=== PATIENT | male | born 1980 | race Caucasian/White ===

== ENCOUNTER → 2016-07-16 | Outpatient (CLI) | payer OTHER ==
[~2016-07-16] VITALS: Ht 177.8 cm; Wt 83.2 kg
[~2016-07-16] MED LIST: CLARITIN 1010 MG/TAB PO; LIPITOR 10MG10 MG PO
[2016-07-16 12:24] VITALS: BP 131/92; PULSE 72
[2016-07-16 13:16] VITALS: BP 127/88; PULSE 60
== END ==
LOC: COL.RAD 10:30
DX: D34 Benign neoplasm of thyroid gland (principal); E78.5 Hyperlipidemia, unspecified; F17.200 Nicotine dependence, unspecified, uncomplicated; F17.220 Nicotine dependence, chewing tobacco, uncomplicated
CPT/HCPCS: 25581